=== PATIENT | male | born 1990 ===

== ENCOUNTER 2017-05-17 08:30 | Emergency (ER) | payer SELFPAY ==
[2017-05-17 08:34] VITALS: BP 114/70; PULSE 76; RESP 16; TEMP 98.1; O2SAT 100; BMI 20.9
--- NOTE | 2017-05-17 09:23 | ED PDOC ---
HPI: Psych/Substance Abuse Time Seen by Provider: 05/17/17 09:11 Chief Complaint (Nursing): Alcohol Ingestion Chief Complaint (Provider): Alcohol Ingestion History Per: Patient History/Exam Limitations: no limitations Onset/Duration Of Symptoms: Days (x1) Current Symptoms Are (Timing): Still Present Modifying Factor(s): Alcohol Additional History Per: EMS Additional Complaint(s): Doroteo is a 27 y/o male who was brought to the ED via EMS after being found intoxicated in the street. Patient admits to alcohol use last night. Denies any fall or injury. No nausea, vomiting, diarrhea, chest pain, cough, shortness of breath, headache, weakness, numbness, or tingling. PMD: None Past Medical History Reviewed: Historical Data, Nursing Documentation, Vital Signs, Unable To Obtain Vital Signs: Last Vital Signs Temp 98.1 F 05/17/17 08:33 Pulse 76 05/17/17 08:33 Resp 16 05/17/17 08:33 BP 114/70 05/17/17 08:33 Pulse Ox 100 05/17/17 08:33 - Medical History PMH: No Chronic Diseases - Surgical History Surgical History: No Surg Hx - Family History Family History: States: Unknown Family Hx - Social History Current smoker - smoking cessation education provided: No Alcohol: Social Drugs: Denies - Allergies Allergies/Adverse Reactions: Allergies Allergy/AdvReac Type Severity Reaction Status Date / Time No Known Allergies Allergy Verified 05/17/17 08:42 Review of Systems ROS Statement: Except As Marked, All Systems Reviewed And Found Negative Constitutional: Negative for: Fever, Chills Cardiovascular: Negative for: Chest Pain Respiratory: Negative for: Cough, Shortness of Breath Gastrointestinal: Negative for: Nausea, Vomiting, Diarrhea Musculoskeletal: Negative for: Neck Pain, Back Pain Neurological: Positive for: Other (Alcohol intoxication). Negative for: Weakness, Numbness, Headache, Dizziness Physical Exam - Reviewed Nursing Documentation Reviewed: Yes Vital Signs Reviewed: Yes - Physical Exam Appears: Positive for: Non-toxic, No Acute Distress Head Exam: Positive for: ATRAUMATIC, NORMOCEPHALIC Skin: Positive for: Normal Color (with no signs or injury or trauma), Warm, Dry Eye Exam: Positive for: EOMI, Normal appearance, PERRL Neck: Positive for: Normal, Painless ROM, Supple Cardiovascular/Chest: Positive for: Regular Rate, Rhythm. Negative for: Murmur Respiratory: Positive for: Normal Breath Sounds. Negative for: Respiratory Distress Gastrointestinal/Abdominal: Positive for: Normal Exam, Soft. Negative for: Tenderness Back: Positive for: Normal Inspection. Negative for: L CVA Tenderness, R CVA Tenderness, Vertebral Tenderness Extremity: Positive for: Normal ROM. Negative for: Pedal Edema, Deformity Neurologic/Psych: Positive for: Alert, Oriented. Negative for: Motor/Sensory Deficits - Laboratory Results Interpretation Of Abn Labs: 208 etoh; cannabis - ECG O2 Sat by Pulse Oximetry: 100 (RA) Pulse Ox Interpretation: Normal - Progress ED Course And Treament: 1231: Stable. AAOx3. Pain free. Tolerated PO. Fu with pcp. Medical Decision Making Medical Decision Making: Time: 9:22 Initial Impression: Alcohol intoxication Initial Plan: --Accucheck --Urine drug screen --Alcohol serum Time: 11:08 --Labs reviewed, alcohol level is 208. Scribe Attestation: Documented by Kala Reyes, acting as a scribe for Chava Feliciano MD Provider Scribe Attestation: All medical record entries made by the Scribe were at my direction and personally dictated by me. I have reviewed the chart and agree that the record accurately reflects my personal performance of the history, physical exam, medical decision making, and the department course for this patient. I have also personally directed, reviewed, and agree with the discharge instructions and disposition. Disposition - Clinical Impression Clinical Impression: Alcohol abuse, Cannabis abuse - Patient ED Disposition Is Patient to be Admitted: No - Disposition Referrals: [facility] [Outside] - 05/18/17 Disposition: Routine/Home Disposition Time: 12:34 Condition: STABLE Additional Instructions: Return if not better in 3 days. Instructions: Cannabis Abuse (ED), Alcohol Intoxication (ED) Print Language: [id number]
== END 2017-05-17 12:58 | disposition home or self-care (01) ==
LOC: H.ER 08:30 → SUPCPDRO 08:30 → H.ER 12:58
DX: F10.129 Alcohol abuse with intoxication, unspecified (principal); F12.10 Cannabis abuse, uncomplicated
CPT/HCPCS: 82948; 99282; G0480